=== PATIENT | female | born 1985 | race Caucasian/White ===

== ENCOUNTER → 2017-04-09 14:01 | Outpatient (CLI) | payer SELFPAY ==
[2017-04-09 16:30] LABS: Hematocrit 32.3 % (37-47); Hemoglobin 10.4 g/dl (12.0-15.0); Mean Corp Hgb Conc 32.2 g/gl (32-36); Mean Corpuscular Hgb 28.6 pg (27.0-32.0); Mean Corpuscular Volume 88.7 fL (81-99); Mean Platelet Vol. 10.6 fl (6.2-12.0); Platelet Count 201 K/mm3 (150-450); RBC Distribution Width CV 14.2 % (11.6-14.6); RBC Distribution Width SD 45.9 fl (35.1-43.9); Red Blood Count 3.64 M/mm3 (4.2-5.4); White Blood Count 8.4 K/mm3 (4.4-11.0)
[2017-04-09 16:32] LABS: Scan Indicated on CBC? Y/N NO
[2017-04-09 16:33] LABS: Glucose Challenge Gest 1H 50g 93 mg/dL (70-140)
== END ==
PROVIDERS: Visit Provider Obstetrics & Gynecology
DX: Z34.83 Encounter for supervision of other normal pregnancy, third trimester (principal)
CPT/HCPCS: 36415; 82950; 85027

== ENCOUNTER → 2017-06-04 12:16 | Outpatient (CLI) | payer SELFPAY ==
[2017-06-04 14:30] LABS: Group B Strep DNA By PCR Negative (Negative); Internal Control PASS; Probe Check PASS; Specimen Processing Control PASS
== END ==
PROVIDERS: Visit Provider Obstetrics & Gynecology
DX: Z36.85 Encounter for antenatal screening for Streptococcus B (principal)
CPT/HCPCS: 87081; 87653

== ENCOUNTER 2017-06-24 06:59 | Inpatient (IN) | payer SELFPAY ==
[2017-06-24 07:24] VITALS: BMI 47.0
[2017-06-24] MEDS: Lactated Ringers 1,000 ML 50 ML IV (07:35)
[2017-06-24 07:54] LABS: Hematocrit 31.6 % (37-47); Hemoglobin 10.3 g/dl (12.0-15.0); Mean Corp Hgb Conc 32.6 g/gl (32-36); Mean Corpuscular Volume 85.9 fL (81-99); Mean Platelet Vol. 10.6 fl (6.2-12.0); Platelet Count 193 K/mm3 (150-450); RBC Distribution Width CV 14.4 % (11.6-14.6); RBC Distribution Width SD 43.3 fl (35.1-43.9); Red Blood Count 3.68 M/mm3 (4.2-5.4); White Blood Count 8.3 K/mm3 (4.4-11.0)
[2017-06-24 08:19] LABS: Scan Indicated on CBC? Y/N NO
[2017-06-24] MEDS: Oxytocin 30 units/NS 500 ml 30 UNITS/500 ML IV.SOLN 334 UNITS IV (15:25)
[2017-06-24] MEDS: Oxytocin 30 units/NS 500 ml 30 UNITS/500 ML IV.SOLN 167 UNITS IV (15:53)
--- NOTE | 2017-06-24 17:39 | PCM.OB.VAG ---
Vaginal Delivery Maternal Presentation: Elective Induction 39w2d ega admitted for elective induction of labor. Method of Induction: Pitocin Amniotic Membrane Rupture Type: Artificial Rupture of Membrane time: 0810 Amniotic Fluid Description: Clear Final REGLA: 06/29/17 Final REGLA Source: US <20 weeks Gestational age: 39 Weeks and 2 Days Date of Procedure: 06/24/17 Pre-Operative Diagnosis: Labor Post-Operative Diagnosis: same Surgery/ Procedure Performed: Spontaneous Vaginal Delivery Anesthesiologist: Sachin Rose Type of Anesthesia: Epidural Description of Procedure: Progressed to fully dilated then pushed for about 45 minutes to deliver a live female without complication. Delayed cord clamping was employed. There was an active cry within the first minute of life. The placenta was delivered spontaneously intact with a centrally located 3VC. The upper vagina, cervix and perineum were intact. A small first degree periurethral tear was repaired with a figure of eight suture of 3-0 vicryl Uterus well contracted after delivery. Presentation: Vertex Placental Delivery Description: Spontaneous Placenta Disposition: [facility] Percentage of Placenta Abruption: 0 Cord Vessel Description: 3 Vessels Cord Entanglement: None Estimated Blood Loss: 300cc A gender: Female (1 minute): 9 (5 minute): 9 Episiotomy Description: None Laceration: Periurethral Extnsion/lac, 1st degree Medications given after delivery: IV Pitocin Complications: None
--- NOTE | 2017-06-24 17:48 | DCINST_ITS ---
Discharge Diet: No Restrictions Discharge Activity: Return to Normal Activity, May Shower Return to work on:: 08/24/17 May shower in (days): 0 May resume sexual activity in: 4-6 weeks Call your doctor if your incision/area has: Sudden Increased Bleeding, Increased Pain/ Swelling, Foul Smelling Discharge Call your doctor if you observe: Fever of 101 or Higher, Inability to urinate, Inability to have a bowel movement, Using more than one pad per hour, Shortness of breath, Chest pain, Calf discomfort, Uncontrolled pain Cleanse incision/area with: Soap & Water Additional Instructions: If you experience any of the following, contact your healthcare provider. * Bleeding that soaks a pad every hour for 2 hours * Fever 100.4 or higher * Unrelieved incision or abdominal pain * Swelling, redness, discharge or bleeding from your incision or episiotomy site * Your incision begins to separate * Problems urinating (including inability to urinate or burning while urinating) . * Visual changes * Severe headache * Flu-like symptoms * Pain or redness in one of both of your breasts * Pain, warmth, tenderness or swelling in your legs, especially the calf area * Frequent nausea and vomiting * Symptoms of depression or anxiety If you experience any of the following, call 911 or go to the nearest Emergency Room. * Chest pain * Problems breathing * Seizure activity * Partial or complete paralysis of a body part, slurred speech, weakness or drooping of the face, or a sudden inability to walk or hold your balance Allergies/Adverse Reactions: Allergies No Known Allergies Allergy (Verified 06/24/17 07:46) Medications to take at Discharge Ferrous Sulfate [Iron] 325 mg PO 06/24/17 Ibuprofen [Motrin] 800 mg PO TID PRN PRN #30 tab 06/24/17 Vit No.130/Iron/FA [ Tablet] 1 each PO 06/24/17 The following prescriptions were given: Ibuprofen [Motrin] 800 mg PO TID PRN PRN #30 tab PRN Reason: pain or cramping Please Follow Up With: Jimmy Quezada MD When: 6 weeks Primary Care Physician: Herman Jang DO [Primary Care Provider] -
[2017-06-24 19:33] VITALS: BP 112/55; PULSE 79; RESP 18; TEMP 37.1; O2SAT 97
[2017-06-25 00:27] VITALS: BP 115/59; PULSE 63; RESP 18; TEMP 36.8
[2017-06-25 04:39] VITALS: BP 106/58; PULSE 72; RESP 18; TEMP 36.7
[2017-06-25 05:13] LABS: Hematocrit 31.4 % (37-47); Hemoglobin 10.2 g/dl (12.0-15.0); Mean Corp Hgb Conc 32.5 g/gl (32-36); Mean Corpuscular Hgb 27.6 pg (27.0-32.0); Mean Corpuscular Volume 84.9 fL (81-99); Mean Platelet Vol. 10.4 fl (6.2-12.0); Platelet Count 179 K/mm3 (150-450); RBC Distribution Width CV 14.7 % (11.6-14.6); RBC Distribution Width SD 45.8 fl (35.1-43.9); White Blood Count 12.4 K/mm3 (4.4-11.0)
[2017-06-25 05:18] LABS: Scan Indicated on CBC? Y/N NO
--- NOTE | 2017-06-25 07:24 | PCM.PN.OB ---
Subjective: Some cramping and backside soreness but otherwise doing well. Bleeding light. Breast feeding. Objective: Afeb VSS Hgb stable - Physical Exam General: Alert, Oriented x3, Cooperative, No apparent distress Lungs: Clear to auscultation, Normal air movement Cardiovascular: Regular rate, Regular Rhythm Abdomen: Soft, Non Tender, Non-Distended, - - Fundus firm nontender Extremities: No edema Skin: No rashes Neurological: Neuro grossly intact Psych/Mental Status: Normal Affect Comment: Lochia light Vital Signs Temp Pulse Resp BP Pulse Ox 98.0 F 72 18 106/58 L 97 06/25/17 04:39 06/25/17 04:39 06/25/17 04:39 06/25/17 04:39 06/24/17 19:33 Oxygen Delivery Method Room Air Weight: 256 lb 12.8 oz Body Mass Index (BMI) 47.0 Intake and Output for Last 24 Hours 06/23/17 06/24/17 06/25/17 23:59 23:59 23:59 Output Total 1400 / 1400 Balance -1400 / -1400 Laboratory Tests Past 24 Hrs 06/24/17 06/24/17 06/25/17 07:35 07:35 04:50 WBC 8.3 12.4 H RBC 3.68 L 3.70 L Hgb 10.3 L 10.2 L Hct 31.6 L 31.4 L MCV 85.9 84.9 MCH 28.0 27.6 MCHC 32.6 32.5 RDW 14.4 14.7 H RDW Differential 43.3 45.8 H Plt Count 193 179 MPV 10.6 10.4 Blood Type A POSITIVE Antibody Screen NEGATIVE Medical Necessity - Tobacco Use Smoking Status: Never smoker Assessment/Plan Doing well on PP day#1. Continue routine PP care. May decide to be discharged later this evening. Home going instructions and warnings given.
[2017-06-25 09:30] VITALS: BP 106/50; PULSE 80; RESP 16; TEMP 37.2
[2017-06-25] MEDS: Prenatal Vits Tablet 1 TABLET PO (12:42)
[2017-06-25 12:45] VITALS: BP 112/62; PULSE 80; TEMP 37.1
[2017-06-25 15:40] VITALS: BP 106/66; PULSE 80; TEMP 36.8
[2017-06-25 19:46] VITALS: BP 100/61; PULSE 82; RESP 18; TEMP 36.9; O2SAT 96
[2017-06-25] MEDS: Senna/Docusate Sodium 1 Tablet PO (21:11)
[2017-06-26 02:00] VITALS: BP 105/69; PULSE 63; RESP 16; TEMP 36.7; O2SAT 97
[2017-06-26 08:00] VITALS: BP 121/49; PULSE 67; RESP 18; TEMP 37.3
--- NOTE | 2017-06-26 08:26 | PCM.PN.OB ---
Subjective: No speicfic complaints. Breast feeding. Bleeding light. Objective: Afeb VSS - Physical Exam General: Alert, Oriented x3, Cooperative, No apparent distress Lungs: Clear to auscultation, Normal air movement Cardiovascular: Regular rate, Regular Rhythm Abdomen: Soft, Non Tender, Non-Distended, - - Fundus firm nontender Extremities: No edema Skin: No rashes Neurological: Neuro grossly intact Psych/Mental Status: Normal Affect Comment: Lochia light Vital Signs Temp Pulse Resp BP Pulse Ox 98.1 F 63 16 105/69 97 06/26/17 02:00 06/26/17 02:00 06/26/17 02:00 06/26/17 02:00 06/26/17 02:00 Oxygen Delivery Method Room Air Weight: 256 lb 12.8 oz Body Mass Index (BMI) 47.0 Intake and Output for Last 24 Hours 06/24/17 06/25/17 06/26/17 23:59 23:59 23:59 Output Total 1400 / 1400 Balance -1400 / -1400 Medical Necessity - Tobacco Use Smoking Status: Never smoker Assessment/Plan Doing well on PP day#2. Cleared for discharge home today. Home going instructions and warnings given.
--- NOTE | 2017-06-26 08:28 | PCM.DC.SUM ---
Discharge Date and Diagnosis Date of Admission: 06/24/17 Date of Discharge: 06/26/17 - Primary Discharge Diagnosis s/p Hospital Course and Treatment Consultations 06/24/17 07:24 Consult: Anesthesia Routine Comment: Reason For Exam: labor Operations: None Procedures: - - Pitocin induction of labor, , epidural Summary of Care Provided: The patient is a 31 year old F [admitted for elective induction of labor. Progressed to FD then pushed for a short time to deliver a live without complication. PP course unremarkable. Discharged home on PP day#2.] Discharge Diet: No Restrictions Discharge Activity: Return to Normal Activity, May Shower Return to work on:: 08/24/17 May shower in (days): 0 May resume sexual activity in: 4-6 weeks Call your doctor if your incision/area has: Sudden Increased Bleeding, Increased Pain/ Swelling, Foul Smelling Discharge Call your doctor if you observe: Fever of 101 or Higher, Inability to urinate, Inability to have a bowel movement, Using more than one pad per hour, Shortness of breath, Chest pain, Calf discomfort, Uncontrolled pain Cleanse incision/area with: Soap & Water Home Medications: Medications to take at Discharge Ferrous Sulfate [Iron] 325 mg PO 06/24/17 Ibuprofen [Motrin] 800 mg PO TID PRN PRN #30 tab 06/24/17 Vit No.130/Iron/FA [ Tablet] 1 each PO 06/24/17 Following Prescrptions Were Given to Patient: Ibuprofen [Motrin] 800 mg PO TID PRN PRN #30 tab PRN Reason: pain or cramping Primary Care Physician: Herman Jang DO [Primary Care Provider] - Please Follow Up With: Jimmy Quezada MD When: 6 weeks Disposition: Home Minutes spent on discharge:: 15 Patient Condition:: Good Medical Necessity - Tobacco Use Smoking Status: Never smoker Meaningful Use Info Meaningful Use Diagnoses (Choose all that apply): None applicable
[2017-06-26 13:40] VITALS: BP 123/50; PULSE 65; RESP 20; TEMP 37.2
== END 2017-06-26 13:40 | disposition home or self-care (01) | DRG 775 ==
PROVIDERS: Admitting Provider Obstetrics & Gynecology; Family Provider Family Medicine; PCP Family Medicine; Visit Provider Obstetrics & Gynecology
DX: O71.82 Other specified trauma to perineum and vulva (principal); Z3A.39 39 weeks gestation of pregnancy; Z37.0 Single live birth
CPT/HCPCS: 59025; 59050; 85027; 86850; 86900; 93460; 99218; J7120; G0378

== ENCOUNTER → 2018-01-27 14:11 | Outpatient (CLI) | payer SELFPAY ==
[2018-02-02 08:42] LABS: HPV HC, High Risk Negative (Negative)
== END ==
PROVIDERS: Visit Provider Obstetrics & Gynecology
DX: Z12.4 Encounter for screening for malignant neoplasm of cervix (principal)
CPT/HCPCS: 87624; 88175; G0145